=== PATIENT | male | born 1990 | race Caucasian/White ===

== ENCOUNTER 2016-07-28 13:39 | Emergency (ER) | payer BC ==
[2016-07-28 14:50] VITALS: BP 132/81
--- NOTE | 2016-07-28 15:14 | UC ---
Skin Complaint HPI - HPI Summary HPI Summary: 26 year old male with complaints of rash on right forearm and in genital area for the last 2 - 3 days Forearm rash started after scraping arm with hay. The genital area started after shaving. - History of Current Complaint Chief Complaint: UCRash Time Seen by Provider: 07/28/16 14:47 Stated Complaint: RASH Hx Obtained From: Patient Onset/Duration: Sudden Onset, Lasting Days - 3, Still Present Onset Severity: Mild Current Severity: Moderate - genital area worse Location: Discrete - right forearm. ALso rash over shaft of penis and pubis Character: Pruritus, Redness, Raised, Painful Aggravating: Clothing, Touch Alleviating: Nothing Associated Signs & Symptoms: Positive: Rash, Tenderness. Negative: Nausea, Vomiting, Numbness, Thirst, Diaphoresis, Weakness, Pallor, Shivering, Difficulty Breathing, Fever, Chills, Cough, Wheezing, Chest Pain, Hoarseness, Throat Tightening, Syncope, Drainage, Bruising, Red Streaks, Joint Swelling - Allergy/Home Medications Allergies/Adverse Reactions: Allergies Allergy/AdvReac Type Severity Reaction Status Date / Time pistachio Allergy Swelling Uncoded 07/28/16 14:50 Of Face,Lips,& Throat Review of Systems Constitutional: Negative Skin: Rash Eyes: Negative ENT: Negative Respiratory: Negative Cardiovascular: Negative Gastrointestinal: Negative Genitourinary: Negative Motor: Negative Neurovascular: Negative Musculoskeletal: Negative Neurological: Negative Psychological: Negative All Other Systems Reviewed And Are Negative: Yes PMH/Surg Hx/FS Hx/Imm Hx Previously Healthy: Yes Endocrine History Of: Denies: Thyroid Disease Cardiovascular History Of: Denies: Hypertension Respiratory History Of: Denies: Asthma - Surgical History Surgical History: Yes Surgery Procedure, Year, and Place: navel double hernia repair mar 2012 - Family History Known Family History: Negative: Hypertension, Diabetes - Social History Occupation: Employed Full-time - [employer] Lives: With Family Alcohol Use: None Substance Use Type: Excessive Caffeine Smoking Status (MU): Heavy Every Day Tobacco Smoker Cessation Counseling: Patient Advised to Stop - he is not interested in quiting - Immunization History Most Recent Tetanus Shot: UTD Physical Exam Triage Information Reviewed: Yes Appearance: No Pain Distress, Well-Nourished, Ill-Appearing - mildly Vital Signs: Initial Vital Signs Temp 99.4 F 07/28/16 14:41 Pulse 81 07/28/16 14:41 Resp 24 07/28/16 14:41 BP 132/81 07/28/16 14:41 Vital Signs Reviewed: Yes Eyes: Positive: Conjunctiva Clear. Negative: Discharge ENT: Positive: Pharynx normal. Negative: Nasal congestion Neck: Positive: Supple, Nontender Respiratory: Positive: Lungs clear, Normal breath sounds Cardiovascular: Positive: RRR, No Murmur Musculoskeletal: Positive: Strength Intact, ROM Intact Neurological: Positive: Alert, Muscle Tone Normal Psychological: Positive: Age Appropriate Behavior - pleasant and cooperative Skin: Positive: rashes - mild erythematous area with few scratches on right forearm Areas of erythema over pubis. Pustules noted at shaved hair follicles. Cluster of pustules vs vessicles noted on shaft of penis. + lymph nodes non tender noted at bilateral ingunal. Negative: breakdown Course/Dx - Course Course Of Treatment: HSV culture pending. wound culture pending - Differential Diagnoses - Skin Complaint Differential Diagnoses: Contact Dermatitis - Diagnoses Provider Diagnoses: Contact dermatitis of right forearm. Folliculitis. Possible Primary outbreak hsv Discharge - Discharge Plan Condition: Stable Disposition: HOME Prescriptions: Cephalexin CAP* [Keflex CAP*] 500 mg PO QID #28 cap ValACYclovir (*) [Valtrex 500 mg (*)] 1,000 mg PO BID #14 tab Patient Education Materials: Genital Herpes Simplex (ED), Contact Dermatitis ( ED), Folliculitis (ED) Referrals: Janet Ramos MD [Primary Care Provider] -
== END 2016-07-28 15:38 | disposition home or self-care (01) ==
LOC: UCCORT 13:39
DX: L25.9 Unspecified contact dermatitis, unspecified cause (principal); L73.9 Follicular disorder, unspecified; F17.210 Nicotine dependence, cigarettes, uncomplicated
CPT/HCPCS: 87529; 99212; G0463